=== PATIENT | male | born 1990 | race Caucasian/White ===

== ENCOUNTER 2018-11-24 07:10 | Emergency (ER) | payer OTHER ==
[2018-11-24] MEDS ORDERED: Sulfameth/Trimethoprim DS 800-160mg TAB ONE (07:57)
== END 2018-11-24 08:00 | disposition home or self-care (01) ==
LOC: BURERS 07:10
DX: L03.114 Cellulitis of left upper limb (principal); F17.210 Nicotine dependence, cigarettes, uncomplicated
CPT/HCPCS: 87070; 87205; 99283